=== PATIENT | female | born 1985 | race Caucasian/White ===

== ENCOUNTER → 2017-09-08 | Outpatient (CLI) | payer OTHER ==
[2016-05-13 21:15] VITALS: BP 113/72
[~2017-09-08] MED LIST: BACTRIM DS TAB1 EACH PO; INDOCIN 25MG CA25 MG PO; PREDNISONE20 MG PO
[2017-09-08 14:50] LABS: MEAN CELL VOLUME 112 fl (78-100); MEAN CORPUSCULAR HGB CONC 33 g/dL (33-37); PLATELET COUNT 69 K/mm3 (130-400); RED CELL DISTRIBUTION WIDTH 15.2 % (11.5-14.5); WHITE BLOOD COUNT 4.6 K/mm3 (4.8-10.8)
[2017-09-08 16:51] LABS: HEMATOCRIT 21.1 % (37.0-47.0); MEAN CORPUSCULAR HEMOGLOBIN 37 pg (27-31); MEAN PLATELET VOLUME 12.6 fl (7.4-10.4); RED BLOOD COUNT 1.88 M/mm3 (4.10-5.30)
[2017-09-08 16:53] LABS: LYMPHOCYTE 32 % (20-51); MONOCYTE 12 % (3-10); NEUTROPHILS 52 % (42-75)
[2017-09-08 16:56] LABS: HYPOCHROMIA 2+
== END ==
LOC: LAB 13:52
PROVIDERS: Ophthalmology
DX: D69.3 Immune thrombocytopenic purpura (principal)

== ENCOUNTER → 2017-10-04 | Outpatient (CLI) | payer OTHER ==
[2016-05-13 21:15] VITALS: BP 113/72
[2017-10-04 15:09] LABS: MEAN CELL VOLUME 100 fl (78-100); MEAN CORPUSCULAR HEMOGLOBIN 33 pg (27-31); MEAN CORPUSCULAR HGB CONC 33 g/dL (33-37); MEAN PLATELET VOLUME 11.8 fl (7.4-10.4); RED BLOOD COUNT 2.38 M/mm3 (4.10-5.30); WHITE BLOOD COUNT 5.6 K/mm3 (4.8-10.8)
[2017-10-04 15:22] LABS: HEMATOCRIT 23.7 % (37.0-47.0); HEMOGLOBIN 7.9 g/dL (12.5-16.0); PLATELET COUNT 44 K/mm3 (130-400); RED CELL DISTRIBUTION WIDTH 23.7 % (11.5-14.5)
[2017-10-04 16:00] LABS: HYPOCHROMIA 1+; LYMPHOCYTE 35 % (20-51); MICROCYTOSIS 1+; MONOCYTE 15 % (3-10); NEUTROPHILS 50 % (42-75); POLYCHROMASIA 1+
[2017-10-04 16:01] LABS: OVALOCYTES 1+
[2017-10-05 00:40] LABS: HAPTOGLOBIN 2 mg/dL (36-195)
[2017-10-05 10:15] LABS: ALBUMIN 3.4 g/dL (3.5-5.0); BUN/CREATININE RATIO 18.5 (6.0-26.0); CALCIUM 8.3 mg/dL (8.4-10.2); POTASSIUM 3.8 mmol/L (3.6-5.0); TOTAL BILIRUBIN 0.2 mg/dL (0.2-1.3); TOTAL PROTEIN 6.6 g/dL (6.3-8.2)
== END ==
LOC: LAB 14:51
PROVIDERS: Internal Medicine
DX: D69.3 Immune thrombocytopenic purpura (principal); D64.9 Anemia, unspecified

== ENCOUNTER → 2019-10-03 | Outpatient (CLI) | payer OTHER ==
[2016-05-13 21:15] VITALS: BP 113/72
[2019-10-03 15:51] LABS: EOS # 0.1 (0.04-0.40); EOS % 1.4 % (1.0-5.0); HEMATOCRIT 38.1 % (37.0-47.0); HEMOGLOBIN 12.3 g/dL (12.5-16.0); MEAN CELL VOLUME 103 fl (78-100); MEAN CORPUSCULAR HEMOGLOBIN 33 pg (27-31); MEAN CORPUSCULAR HGB CONC 32 g/dL (33-37); MEAN PLATELET VOLUME 8.8 fl (7.4-10.4); MONO # 0.6 (0.20-0.80); NEU # 4.2 (1.40-6.50); PLATELET COUNT 276 K/mm3 (130-400); RED CELL DISTRIBUTION WIDTH 13.8 % (11.5-14.5)
[2019-10-03 15:59] LABS: ALBUMIN 3.8 g/dL (3.5-5.0)
[2019-10-03 16:00] LABS: POTASSIUM 3.9 mmol/L (3.5-5.1)
[2019-10-03 16:01] LABS: CALCIUM 8.9 mg/dL (8.3-10.5)
[2019-10-03 16:02] LABS: TOTAL PROTEIN 6.6 g/dL (6.4-8.3)
[2019-10-03 16:04] LABS: TOTAL BILIRUBIN 0.2 mg/dL (0.2-1.2)
== END ==
LOC: LAB 15:27
DX: C92.01 Acute myeloblastic leukemia, in remission (principal); Z94.81 Bone marrow transplant status

== ENCOUNTER → 2020-01-02 | Outpatient (CLI) | payer OTHER ==
[2016-05-13 21:15] VITALS: BP 113/72
== END ==
LOC: LAB 11:12
DX: R05 Cough (principal); Z20.828 Contact with and (suspected) exposure to other viral communicable diseases

== ENCOUNTER → 2020-12-20 | Outpatient (CLI) | payer OTHER ==
[2020-12-20 09:07] LABS: BASO # 0.02 (0.02-0.10); EOS # 0.08 (0.04-0.40); EOS % 1.9 % (1.0-5.0); HEMATOCRIT 37.2 % (37.0-47.0); HEMOGLOBIN 12.2 g/dL (12.5-16.0); LYMPH# 1.92 (1.50-4.00); MEAN CELL VOLUME 104 fl (78-100); MEAN CORPUSCULAR HEMOGLOBIN 34 pg (27-31); MEAN CORPUSCULAR HGB CONC 33 g/dL (33-37); MEAN PLATELET VOLUME 9.3 fl (7.4-10.4); MONO # 0.44 (0.20-0.80); NEU # 1.85 (1.40-6.50); PLATELET COUNT 249 K/mm3 (130-400); RED BLOOD COUNT 3.58 M/mm3 (4.10-5.30); RED CELL DISTRIBUTION WIDTH 14.1 % (11.5-14.5); WHITE BLOOD COUNT 4.3 K/mm3 (4.8-10.8)
[2020-12-20 09:11] LABS: ALBUMIN 3.7 g/dL (3.5-5.0)
[2020-12-20 09:13] LABS: CALCIUM 8.6 mg/dL (8.3-10.5)
[2020-12-20 09:14] LABS: TOTAL PROTEIN 6.2 g/dL (6.4-8.3)
[2020-12-20 09:16] LABS: TOTAL BILIRUBIN 0.4 mg/dL (0.2-1.2)
== END ==
LOC: LAB 08:49
DX: C92.01 Acute myeloblastic leukemia, in remission (principal); Z94.81 Bone marrow transplant status

== ENCOUNTER → 2022-08-03 | Outpatient (CLI) | payer OTHER ==
[2022-08-03 16:18] LABS: BASO # 0.02 K/mm3 (0.02-0.10); EOS # 0.04 K/mm3 (0.04-0.40); EOS % 0.6 % (1.0-5.0); HEMATOCRIT 37.6 % (37.0-47.0); HEMOGLOBIN 12.1 g/dL (12.5-16.0); LYMPH# 2.53 K/mm3 (1.50-4.00); MEAN CELL VOLUME 104 fl (78-100); MEAN CORPUSCULAR HEMOGLOBIN 33 pg (27-31); MEAN CORPUSCULAR HGB CONC 32 g/dL (33-37); MEAN PLATELET VOLUME 9.4 fl (7.4-10.4); MONO # 0.43 K/mm3 (0.20-0.80); NEU # 3.42 K/mm3 (1.40-6.50); PLATELET COUNT 247 K/mm3 (130-400); RED BLOOD COUNT 3.63 M/mm3 (4.10-5.30); RED CELL DISTRIBUTION WIDTH 14.2 % (11.5-14.5); WHITE BLOOD COUNT 6.5 K/mm3 (4.8-10.8)
[2022-08-03 16:34] LABS: ALBUMIN 3.8 g/dL (3.5-5.0)
[2022-08-03 16:35] LABS: POTASSIUM 3.7 mmol/L (3.5-5.1)
[2022-08-03 16:36] LABS: CALCIUM 8.8 mg/dL (8.3-10.5)
[2022-08-03 16:39] LABS: TOTAL BILIRUBIN 0.2 mg/dL (0.2-1.2)
[2022-08-03 17:22] LABS: TOTAL PROTEIN 7.3 g/dL (6.4-8.3)
== END ==
LOC: LAB 16:06
DX: C92.01 Acute myeloblastic leukemia, in remission (principal); Z94.81 Bone marrow transplant status

== ENCOUNTER 2024-08-11 18:08 | Emergency (ER) | payer OTHER ==
[~2024-08-11] VITALS: Ht 160 cm; Wt 55.5 kg
[2024-08-11] MEDS ORDERED: ESTARYLLA 35 MC1 TAB PO (18:37)
[2024-08-11] MEDS ORDERED: ALBUTEROL1.25 MG/3 IH (18:37)
[2024-08-11] MEDS ORDERED: BUSPAR 15MG TAB15 MG PO (18:37)
[2024-08-11] MEDS ORDERED: SYNTHROID RP0.1 MG PO (18:38)
[2024-08-11] MEDS ORDERED: LISDEXAMFETAMIN40 MG PO (18:38)
[2024-08-11 19:35] LABS: BASO # 0.01 K/mm3 (0.02-0.10); EOS # 0.04 K/mm3 (0.04-0.40); EOS % 0.5 % (1.0-5.0); HEMATOCRIT 36.1 % (37.0-47.0); HEMOGLOBIN 11.9 g/dL (12.5-16.0); LYMPH# 2.39 K/mm3 (1.50-4.00); MEAN CELL VOLUME 99 fl (78-100); MEAN CORPUSCULAR HEMOGLOBIN 33 pg (27-31); MEAN CORPUSCULAR HGB CONC 33 g/dL (33-37); MEAN PLATELET VOLUME 9.7 fl (7.4-10.4); MONO # 0.71 K/mm3 (0.20-0.80); NEU # 5.18 K/mm3 (1.40-6.50); PLATELET COUNT 299 K/mm3 (130-400); RED BLOOD COUNT 3.65 M/mm3 (4.10-5.30); RED CELL DISTRIBUTION WIDTH 13.5 % (11.5-14.5); WHITE BLOOD COUNT 8.4 K/mm3 (4.8-10.8)
[2024-08-11 19:41] LABS: ALBUMIN 3.9 g/dL (3.5-5.0)
[2024-08-11 19:43] LABS: CALCIUM 9.4 mg/dL (8.3-10.5)
[2024-08-11 19:44] LABS: TOTAL PROTEIN 7.5 g/dL (6.4-8.3)
[2024-08-11 19:46] LABS: TOTAL BILIRUBIN 0.2 mg/dL (0.2-1.2)
[2024-08-11] MEDS ORDERED: predniSONE 20 MG TAB PO ONE (20:15)
[2024-08-11] MEDS ORDERED: Doxycycline Monohydrate 100 MG CAP PO ONE (20:15)
[2024-08-11] MEDS ORDERED: HYDROcodone/Acetaminophen 10-325 MG TAB PO ONE (20:15)
[2024-08-11] MEDS ORDERED: PREDNISONE20 MG PO (20:18)
[2024-08-11] MEDS ORDERED: DOXYCYCLINE MO100 M3 PO (20:18)
[2024-08-11] MEDS ORDERED: HYDROCODONE-CH115 ML PO (20:24)
[2024-08-11 20:33] VITALS: BP 118/80
== END 2024-08-11 20:33 | disposition home or self-care (01) ==
LOC: ED 18:08
PROVIDERS: Family Medicine
DX: J40 Bronchitis, not specified as acute or chronic (principal); Z94.81 Bone marrow transplant status; Z85.830 Personal history of malignant neoplasm of bone
CPT/HCPCS: J7512